=== PATIENT | male | born 1995 | race Caucasian/White ===

== ENCOUNTER 2021-04-29 23:06 | Emergency (ER) | payer BC ==
[2021-04-30 03:06] LABS: HEMOGLOBIN 17.1 gm/dl (14.0-17.5); RED BLOOD COUNT 5.34 M/UL (4.20-5.50); WHITE BLOOD COUNT 9.1 K/UL (4.5-11.0)
[2021-04-30 03:29] LABS: BUN/CREATININE RATIO 13 (0-10)
[2021-04-30] MEDS ORDERED: AUGMENTIN 875-1 EACH PO (06:00)
[2021-04-30] MEDS ORDERED: BENTYL 20MG TAB20 MG PO (06:00)
[2021-04-30] MEDS ORDERED: FLORASTOR250 MG PO (06:00)
[2021-04-30] MEDS ORDERED: ZOFRAN ODT 4 MG4 MG PO (06:00)
== END 2021-04-30 07:19 | disposition home or self-care (01) ==
LOC: ER1 23:06
PROVIDERS: Physician Assistant Medical
DX: K51.00 Ulcerative (chronic) pancolitis without complications (principal); Z20.822 Contact with and (suspected) exposure to COVID-19
CPT/HCPCS: 80053; 81001; 83690; 85025; 96372; 96374; 99284; J0500; J2405; J7030; Q9967; U0002